=== PATIENT | male | born 2000 | race Caucasian/White ===

== ENCOUNTER 2021-06-01 16:21 | Emergency (ER) | payer BC ==
[~2021-06-01] VITALS: Ht 177.8 cm; Wt 84.1 kg
[2021-06-01 16:29] VITALS: TEMP 98.7
[2021-06-01 17:25] VITALS: BP 121/93; PULSE 99
== END 2021-06-01 17:25 | disposition home or self-care (01) ==
LOC: COL.ER 16:21
DX: S43.004A Unspecified dislocation of right shoulder joint, initial encounter (principal); V19.9XXA Pedal cyclist (driver) (passenger) injured in unspecified traffic accident, initial encounter; Y92.410 Unspecified street and highway as the place of occurrence of the external cause
CPT/HCPCS: J1885